=== PATIENT | female | born 1990 | race Caucasian/White ===

== ENCOUNTER 2018-09-16 20:02 | Emergency (ER) | payer SELFPAY ==
[2018-09-16] MEDS: DIPHENHYDRAMINE 50 MG CAP PO (22:29)
[2018-09-16] MEDS: DEXAMETHASONE 10 MG/ML 1 ML INJ IM (22:29)
[2018-09-16] MEDS: RANITIDINE 150 MG TAB PO (22:44)
== END 2018-09-16 22:47 | disposition home or self-care (01) ==
LOC: FTE 22:47
DX: L50.9 Urticaria, unspecified (principal)
CPT/HCPCS: 96372; 99284-25